=== PATIENT | female | born 1965 | race African-American/Black ===

== ENCOUNTER 2025-04-13 10:15 | Outpatient (CLI) | payer OTHER | END 2025-04-13 10:16 | disposition home or self-care (01) | LOC: CSHULT 10:15 | PROVIDERS: ATTEND Nurse Practitioner Family | DX: E04.1 Nontoxic single thyroid nodule (principal) | CPT/HCPCS: 76536 ==

== ENCOUNTER 2025-05-16 08:32 | Day surgery (SDC) | payer OTHER ==
[2025-05-16] MEDS ORDERED: Sodium Bicarbonate 2.5 MEQ/5 ML SDV ONE (09:14)
[2025-05-16 09:17] VITALS: BP 128/79; TEMP 97.6
[2025-05-16] MEDS ORDERED: FLU (Fluarix Triv) 25-26 (6MOS UP)/PF 45 MCG/0.5 ML Syringe IM ONE (09:30)
== END 2025-05-16 10:00 | disposition home or self-care (01) ==
LOC: CSHULT 08:32
PROVIDERS: ATTEND Nurse Practitioner Family
PROC: 0G9G3ZX Drainage of Left Thyroid Gland Lobe, Percutaneous Approach, Diagnostic (ICD-10-PCS; principal; 2025-05-16)
DX: E04.2 Nontoxic multinodular goiter (principal); I10 Essential (primary) hypertension; I42.8 Other cardiomyopathies; M25.512 Pain in left shoulder; F17.210 Nicotine dependence, cigarettes, uncomplicated; Z98.51 Tubal ligation status; Z79.82 Long term (current) use of aspirin; Z79.899 Other long term (current) drug therapy
CPT/HCPCS: 10005; 88173